=== PATIENT | female | born 1965 | race Asian ===

== ENCOUNTER 2022-08-16 09:02 | Emergency (ER) | payer OTHER ==
[~2022-08-16] VITALS: Ht 162.6 cm; Wt 84.1 kg
[2022-08-16] MEDS ORDERED: GLIP-102 PO (09:13)
[2022-08-16] MEDS ORDERED: AMLO-257 PO (09:13)
[2022-08-16] MEDS ORDERED: METF-1185 PO (09:13)
[2022-08-16] MEDS ORDERED: LOSA-382 PO (09:14)
[2022-08-16 11:06] LABS: APPEARANCE,URINE HAZY (CLEAR); BILIRUBIN,URINE NEGATIVE (NEGATIVE); GLUCOSE, URINE (UA) NEGATIVE (NEGATIVE); KETONES,URINE TRACE mg/dL (NEGATIVE); LEUKOCYTE ESTERASE ,URINE LARGE (NEGATIVE); NITRATE,URINE NEGATIVE (NEGATIVE); OCCULT BLOOD,URINE NEGATIVE (NEGATIVE); PH,URINE 5.5 (5.0-8.0); PROTEIN,URINE TRACE mg/dL (NEGATIVE); SPECIFIC GRAVITIY, URINE 1.027 (1.003-1.030); UROBILINOGEN,URINE <=1.0 mg/dL (<=1.0)
[2022-08-16 11:10] VITALS: BP 131/77
[2022-08-16 11:58] LABS: BACTERIA,URINE Moderate /HPF (None Seen); RBC,URINE None Seen /HPF (0-2); SQUAMOUS EPITHELIAL CELL,UR Moderate /LPF (None Seen)
[2022-08-16] MEDS ORDERED: CEPHALEXIN MONOHYDRATE 500 MG CAPSULE PO ONE (12:15)
[2022-08-16] MEDS ORDERED: ACETAMINOPHEN 500 MG TABLET PO ONE (12:15)
[2022-08-16] MEDS ORDERED: ATOR20TA65 PO (12:18)
[2022-08-16] MEDS ORDERED: GLIP5TAB11 PO (12:18)
[2022-08-16] MEDS ORDERED: CEPH-558 PO (12:31)
== END 2022-08-16 12:45 | disposition home or self-care (01) ==
LOC: EMS 09:06
DX: N12 Tubulo-interstitial nephritis, not specified as acute or chronic (principal); E11.9 Type 2 diabetes mellitus without complications; I10 Essential (primary) hypertension; Z90.49 Acquired absence of other specified parts of digestive tract
CPT/HCPCS: 81001; 82962; 87086; 99283